=== PATIENT | male | born 1955 | race Two or more races ===

== ENCOUNTER 2025-05-25 12:30 | Inpatient (IN) | payer OTHER ==
[~2025-05-25] VITALS: Ht 188 cm; Wt 134.5 kg
[2025-05-25 12:53] VITALS: PULSE 132; RESP 27; O2SAT 95
[2025-05-25] MEDS: SODIUM CHLORIDE 0.9% 1,000 ML IV ONE ×2 (13:06→13:38)
[2025-05-25] MEDS: CEFEPIME 1GM/50ML 50 ML IV ONE (13:07)
[2025-05-25] MEDS: ACETAMINOPHEN 500 MG TAB or CAP PO ONE (13:09)
--- NOTE | 2025-05-25 13:18 | ED.PDOC ---
General HPI Comments 70 y/o M, with PMHx of HTN and DM is BIBA for CC of dysuria. EMS reports, patient is coming from home where he c/o dysuria, hematuria, and urinary hesitancy sudden onset, last night (05/24/25). Patient reports, "sharp/burning" pain with urination and to have been febrile with a temperature of 102F. Upon arrival to the ED, patient is tachycardiac with a HR of 132bpm and febrile with a temperature of 101.4F. Patient denies back pain, abdominal pain, nausea, vomiting, penile discharge, or scrotal swelling. At this time patient was moved to ED bed 06, care is ongoing at this time. Chief Complaint: Urinary Time Seen by MD: 13:05 Reviewed notes: Nurses Notes, Plating Technician Notes, Medications, Allergies Allergies: Coded Allergies: NO KNOWN ALLERGIES (Unverified , 05/25/25) Information Source: Patient, Emergency Med Personnel Mode of Arrival: Ambulatory Severity: Moderate Timing: Days Duration: Since onset Prehospital treatment: None Onset: Spontaneous Symptoms: Dysuria, Hematuria, Inability to void History of: None Location: None Penile discharge: None Modifying factors: None associated signs and symptoms: Dysuria, Hematuria, Inability to Void Past Medical History PAST MEDICAL HISTORY: DM, HTN Surgical History: Denies all surgeries Family History Family History: Unknown Social History Smoker: Non-Smoker Alcohol: Denies ETOH Use Drugs: Denies Drug Use Lives In: Home Constitutional: reports: fever; denies: chills, diaphoresis, fatigue, malaise, sweats, weakness, others EENTM: denies: blurred vision, double vision, ear bleeding, ear discharge, ear drainage, ear pain, ear ringing, eye pain, eye redness, hearing loss, mouth pain, mouth swelling, nasal discharge, nose bleeding, nose congestion, nose pain, photophobia, tearing, throat pain, throat swelling, voice changes, others Respiratory: denies: cough, hemoptysis, orthopnea, SOB at rest, shortness of breath, SOB with excertion, stridor, wheezing, others Cardiovascular: denies: chest pain, dizzy spells, diaphoresis, Dyspnea on exertion, edema, irregular heart beat, left arm pain, lightheadedness, palpitations, PND, syncope, others Gastrointestinal: denies: abdomen distended, abdominal pain, blood streaked bowels, constipated, diarrhea, dysphagia, difficulty swallowing, hematemesis, melena, nausea, poor appetite, poor fluid intake, rectal bleeding, rectal pain, vomiting, others Genitourinary: reports: dysuria, hematuria; denies: burning, flank pain, frequency, incontinence, penile discharge, penile sore, pain, testicle pain, testicle swelling, urgency, others Neurological: denies: dizziness, fainting, headache, left sided numbness, left sided weakness, numbness, paresthesia, pre-existing deficit, right sided numbness, right sided weakness, seizure, speech problems, tingling, tremors, weakness, others Musculoskeletal: denies: back pain, gout, joint pain, joint swelling, muscle p ain, muscle stiffness, neck pain, others Integumetry: denies: bruises, change in color, change in hair/nails, dryness, laceration, lesions, lumps, rash, wounds, others Allergic/Immunocompromised: denies: Difficulty Healing, Frequent Infections, Hives, Itching, others Hematologic/Lymphatic: denies: anemia, blood clots, easy bleeding, easy bruising, swollen glands, others Endocrine: denies: excessive hunger, excessive sweating, excessive thirst, excessive urination, flushing, intolerance to cold, intolerance to heat, unexplained weight gain, unexplained weight loss, others Psychiatric: denies: anxiety, bipolar disorder, depression, hopeless, panic disorder, schizophrenia, sleepless, suicidal, others All Other Systems: Reviewed and Negative Physical Exam General Appearance: Moderate Distress HEENT: Normal ENT Inspection, Pharynx Normal, TMs Normal Neck: Full Range of Motion, Non-Tender, Normal, Normal Inspection Respiratory: Chest Non-Tender, Lungs Clear, No Accessory Muscle Use, No Respiratory Distress, Normal Breath Sounds Cardiovascular: No Edema, No JVD, No Murmur, No Gallop, Normal Peripheral Pulses, Regular Rate/Rhythm Breast Exam: Deferred Gastrointestinal: No Organomegaly, Non Tender, No Pulsatile Mass, Normal Bowel Sounds, Soft Genitalia: Deferred Pelvic: Deferred Rectal: Deferred Extremities: No calf tenderness, Normal capillary refill, Normal inspection, Normal range of motion, Non-tender, No pedal edema Musculoskeletal : Apperance: Normal Neurologic: Alert, packer denture II-XII nml as Tested, No Motor Deficits, Normal Affect, Normal Mood, No Sensory Deficits Cerebellar Function: Normal Reflexes: NOT DONE Skin: Dry, Normal Color, Warm Peripheral Pulses: 3+ Radial (R), 3+ Radial (L) Lymphatic: No Adenopathy Was a procedure done? Was a procedure done?: No Differential Diagnosis Kidney stone (Female): Musculoskeletal pain, Urinary obstruction, Urolithiasis Kidney stone (Male): Pyelonephritis, Urinary obstruction, Urolithiasis, Urinary tract infection X-Ray, Labs, Meds, VS Vital Signs Date Time Temp Pulse Resp B/P (MAP) Pulse Ox O2 Delivery O2 Flow Rate FiO2 05/25/25 15:00 98 24 130/75 (93) 95 05/25/25 14:40 99.6 100 26 144/81 (102) 100 99.6 05/25/25 14:09 101.2 05/25/25 13:50 100.5 100.5 05/25/25 13:09 101.4 05/25/25 12:53 101.4 132 27 135/82 (99) 95 101.4 05/25/25 12:53 132 27 95 Room Air* 0 21 05/25/25 12:40 122 05/25/25 12:33 101.3 106 20 195/97 94 101.3 Lab Test 05/25/25 15:00 05/25/25 13:06 05/25/25 12:50 Range/Units Lactic Acid Level 2.1 *H 3.2 *H 0.4-2.0 mmol/L White Blood Count 18.8 H 4.4-10.8 10^3/uL Red Blood Count 4.96 4.5-5.90 10^6/uL Hemoglobin 15.1 13.5-17.5 g/dL Hematocrit 44.4 41.0-53.0 % Mean Corpuscular Volume 89.5 80.0-100.0 fL Mean Corpuscular Hemoglobin 30.3 28.0-32.0 pg Mean Corpuscular Hemoglobin Concent 33.9 32.0-36.0 g/dL Red Cell Distribution Width 13.5 11.8-14.3 % Platelet Count 263 140-450 10^3/uL Mean Platelet Volume 6.3 L 6.9-10.8 fL Neutrophils (%) (Auto) 85.7 H 37.0-80.0 % Lymphocytes (%) (Auto) 3.5 L 10.0-50.0 % Monocytes (%) (Auto) 10.5 0.0-12.0 % Eosinophils (%) (Auto) 0.0 0.0-7.0 % Basophils (%) (Auto) 0.3 0.0-2.0 % Neutrophils # (Auto) 16.1 H 1.6-8.6 10 ^3/uL Lymphocytes # (Auto) 0.7 0.4-5.4 10 ^3/uL Monocytes # (Auto) 2.0 H 0-1.3 10 ^3/uL Eosinophils # (Auto) 0 0-0.8 10 ^3/uL Basophils # (Auto) 0.1 0-0.2 10 ^3/uL Nucleated Red Blood Cells 0.0 % Sodium Level 135 L 136-145 mmol/L Potassium Level 3.9 3.5-5.1 mmol/L Chloride Level 100 98-107 mmol/L Carbon Dioxide Level 22 20-31 mmol/L Anion Gap 13 5-15 Blood Urea Nitrogen 8 L 9-23 mg/dL Creatinine 1.00 0.700-1.30 mg/dL Glomerular Filtration Rate Calc 80 >90 mL/min BUN/Creatinine Ratio 8.0 L 10.0-20.0 Serum Glucose 223 H 74-106 mg/dL Calcium Level 9.4 8.7-10.4 mg/dL Total Bilirubin 1.4 H 0.2-1.0 mg/dL Aspartate Amino Transferase (AST) 17 13-40 U/L Alanine Aminotransferase (ALT) 21 7-40 U/L Alkaline Phosphatase 96 46-116 U/L Total Protein 7.9 5.7-8.2 g/dL Albumin 4.8 3.2-4.8 g/dL Urine Color Light-brown Yellow Urine Clarity Turbid H Clear Urine pH 7.0 5.0-9.0 Urine Specific [place] 1.018 1.001-1.035 Urine Protein 1+ H Negative Urine Ketones Trace Negative Urine Blood 3+ H Negative /uL Urine Nitrite Negative Negative Urine Bilirubin Negative Negative Urine Urobilinogen Normal Negative mg/dL Urine Leukocyte Esterase 3+ Negative /uL Urine RBC 2894 0 - 3 /hpf Urine Microscopic WBC 103 H 0-3 /HPF Urine Squamous Epithelial Cells None seen <5 /hpf Urine Bacteria None seen None Seen /hpf Urine Mucus Few None Seen Urine Glucose 2+ H Normal mg/dL Current Medications Medications (Trade) Dose Ordered Sig/Feng Route Start Time Stop Time Status Last Admin Sodium Chloride 1,000 ml @ 1,000 mls/hr Q1H ONCE IV 05/25/25 13:00 05/25/25 13:59 DC 05/25/25 13:06 Vancomycin HCl 250 ml @ 250 mls/hr ONCE ONCE IV 05/25/25 14:00 05/25/25 14:59 DC 05/25/25 14:17 Cefepime HCl 50 ml @ 50 mls/hr ONCE ONCE IV 05/25/25 13:00 05/25/25 13:59 DC 05/25/25 13:07 Acetaminophen (Tylenol Tablet Or Capsule) 1,000 mg ONCE ONCE PO 05/25/25 13:00 05/25/25 13:01 DC 05/25/25 13:09 Sodium Chloride 1,000 ml @ 1,000 mls/hr Q1H ONCE IV 05/25/25 13:45 05/25/25 14:44 DC 05/25/25 13:38 Sodium Chloride 1,408 ml @ 1,000 mls/hr Q1H25M ONCE IV 05/25/25 15:45 05/25/25 17:09 05/25/25 15:41 [place] [address] Ph: [phone] DIAGNOSTIC IMAGING Diagnostic Imaging Report : [id number] Signed PATIENT: DONA SANTANA ACCT: [id number] UNIT: [id number] : 1955 LOC: ER ROOM / BED: / AGE / SEX: 70 / M ADM STATUS: REG ER SERVICE 1335 ORDERING PHYSICIAN: JUDY HANLEY MD PROCEDURE(s): CXR1 - CHEST XRAY 1 VIEW REASON: SOB ORDER NUMBER(s): [id number], ACCESSION NUMBER(s): [id number] CHEST RADIOGRAPH Indication: SOB Technique: Single frontal view of the chest was obtained Comparison: None FINDINGS: Lines and Tubes: None Lungs: No focal consolidation. Pleura: No effusion. No pneumothorax. Cardiomediastinal contours: Unremarkable Bones: No acute osseous abnormality. IMPRESSION: 1. No acute cardiopulmonary disease. ATED BY: RODRI GRECO Jr., DO DICTATED DATE/TIME: 05/25/251401 SIGNED BY: RODRI GRECO Jr., SIGNED DATE/TIME: 05/25/251401 CC: Patient alert. Came in because urinary pain. Has fever. Vitals stable. Possible sepsis. Establish intravenous access. Was given fluids. Was given antibiotics. Explained to the patient. Continue to monitor. [place] approved inpatient admission [id number]. Time of 1ST Reevaluation: 13:35 Reevaluation 1ST: Unchanged Patient Education/Counseling: Diagnosis, Treatment Family Education/Counseling: No Family Present SEPSIS Sepsis Screen Date sepsis recognized/suspect: May 25, 2025 Time Sepsis recognized/suspect: 1233 Recent Procedure: Yes On Antibiotic Therapy: No Respiratory Rate >20: No Heart Rate >90: Yes Temp<36 C (96.8 F) or >38.3 C: Yes SBP <90 or MAP <65 mmHG: No New Acute Mental Status Change: No Is the patient on CPAP, BIPAP,: No Physician Orders Electrocardigram (05/25/25 12:55) Blood Culture (05/25/25 12:54) Urine Bacterial Culture (05/25/25 12:54) Chest Xray 1 View (05/25/25 13:35) Sodium Chloride 0.9% (05/25/25 15:45) Vital Signs Date Time Temp Pulse Resp B/P (MAP) Pulse Ox O2 Delivery O2 Flow Rate FiO2 05/25/25 15:00 98 24 130/75 (93) 95 05/25/25 14:40 99.6 100 26 144/81 (102) 100 99.6 05/25/25 14:09 101.2 05/25/25 13:50 100.5 100.5 05/25/25 13:09 101.4 05/25/25 12:53 101.4 132 27 135/82 (99) 95 101.4 05/25/25 12:53 132 27 95 Room Air* 0 21 05/25/25 12:40 122 05/25/25 12:33 101.3 106 20 195/97 94 101.3 Laboratory Tests Test 05/25/25 13:06 05/25/25 15:00 Lactic Acid Level 3.2 mmol/L (0.4-2.0) *H 2.1 mmol/L (0.4-2.0) *H White Blood Count 18.8 10^3/uL (4.4-10.8) H Medications Medications Dose Ordered Sig/Feng Route Start Time Stop Time Status Last Admin Dose Admin Acetaminophen 1,000 mg ONCE ONCE PO 05/25/25 13:00 05/25/25 13:01 DC 05/25/25 13:09 Cefepime HCl 50 ml @ 50 mls/hr ONCE ONCE IV 05/25/25 13:00 05/25/25 13:59 DC 05/25/25 13:07 Sodium Chloride 1,000 ml @ 1,000 mls/hr Q1H ONCE IV 05/25/25 13:00 05/25/25 13:59 DC 05/25/25 13:06 Sodium Chloride 1,000 ml @ 1,000 mls/hr Q1H ONCE IV 05/25/25 13:45 05/25/25 14:44 DC 05/25/25 13:38 Sodium Chloride 1,408 ml @ 1,000 mls/hr Q1H25M ONCE IV 05/25/25 15:45 05/25/25 17:09 05/25/25 15:41 Vancomycin HCl 250 ml @ 250 mls/hr ONCE ONCE IV 05/25/25 14:00 05/25/25 14:59 DC 05/25/25 14:17 Departure 1 Departure Time of Disposition: 15:21 Impression: Primary Impression: Sepsis due to urinary tract infection Disposition: ADMITTED INPATIENT Admit to: Med Surg Condition: Guarded Critical Care Note Critical Care Time?: Yes (90 min-critical care time only) Stability Stability form required: No Heart Score Heart Score: Heart Score Response (Comments) Value History N/A 0 EKG N/A 0 Age N/A 0 Risk Factors N/A 0 Troponin N/A 0 Total 0 I personally scribed for JUDY HANLEY MD ([email or web address]) on 05/25/25 at 13:18. Electronically submitted by Barbi Carolina ([email or web address]). I personally scribed for JUDY HANLEY MD ([email or web address]) on 05/25/25 at 13:58. Electronically submitted by Barbi Carolina ([email or web address]). I personally scribed for JUDY HANLEY MD ([email or web address]) on 05/25/25 at 15:11. Electronically submitted by Barbi Carolina ([email or web address]). I personally scribed for JUDY HANLEY MD ([email or web address]) on 05/25/25 at 16:19. Electronically submitted by Barbi Carolina ([email or web address]). JUDY HANLEY MD May 25, 2025 13:18
[2025-05-25 13:20] LABS: Hematocrit 44.4 % (41.0-53.0); Hemoglobin 15.1 g/dL (13.5-17.5); Mean Corpuscular Hemoglobin 30.3 pg (28.0-32.0); Mean Corpuscular Volume 89.5 fL (80.0-100.0); Nucleated Red Blood Cells % 0.0 %
[2025-05-25 13:35] LABS: Urine Protein, UAD 1+ (Negative)
[2025-05-25 13:36] LABS: Alanine Aminotransferase 21 U/L (7-40); Alkaline Phosphatase 96 U/L (46-116); Anion Gap 13 (5-15); BUN/Creatinine Ratio 8.0 (10.0-20.0); Calcium 9.4 mg/dL (8.7-10.4); Carbon Dioxide 22 mmol/L (20-31); Chloride 100 mmol/L (98-107); Potassium 3.9 mmol/L (3.5-5.1); Total Protein 7.9 g/dL (5.7-8.2)
[2025-05-25 13:38] LABS: Albumin 4.8 g/dL (3.2-4.8); Bilirubin, Total 1.4 mg/dL (0.2-1.0); Blood Urea Nitrogen 8 mg/dL (9-23); Glucose 223 mg/dL (74-106); Sodium 135 mmol/L (136-145)
[2025-05-25 13:39] LABS: Lactic Acid w/Reflex 3.2 mmol/L (0.4-2.0)
--- NOTE | 2025-05-25 14:04 | DVH ---
CHEST RADIOGRAPH Indication: SOB Technique: Single frontal view of the chest was obtained Comparison: None FINDINGS: Lines and Tubes: None Lungs: No focal consolidation. Pleura: No effusion. No pneumothorax. Cardiomediastinal contours: Unremarkable Bones: No acute osseous abnormality. IMPRESSION: 1. No acute cardiopulmonary disease.
[2025-05-25] MEDS: VANCOMYCIN 1GM/250ML KIT 250 ML IV ONE (14:17)
[2025-05-25] MEDS: SODIUM CHLORIDE 0.9% IV ONE (15:41)
[2025-05-25] MEDS ORDERED: NITROGLYCERIN 0.4 MG SL TAB SL PRN (18:30)
[2025-05-25] MEDS ORDERED: MORPHINE SULFATE INJ 2 MG/ml SYRG IV PRN (18:30)
[2025-05-25] MEDS ORDERED: HYDROcodone-ACET 5/325MG TAB PO PRN (18:30)
[2025-05-25] MEDS ORDERED: ONDANSETRON HCL 4 MG/2 ML VIAL IV PRN (18:30)
--- NOTE | 2025-05-25 18:42 | DVHHPRES ---
History of Present Illness Resident Creating Document: JOSE BURRIS RESIDENT Reason for Visit: Fever, gross hematuria, dysuria, urinary hesitancy, History of Present Illness 70-year-old male with a history of hypertension, diabetes mellitus, hypothyroidism, hyperlipidemia, and BPH, presenting with acute onset of fever (Tmax 102.7F), dysuria, hematuria with clot passage, urinary hesitancy, and urinary retention since 05/24/25. The patient reports feeling acutely unwell, with chills, fever, and gross hematuria beginning at 3 AM. He notes passage of possible blood clots per urethra. He denies flank pain, abdominal pain, nausea, vomiting, penile discharge, or scrotal swelling. He underwent left renal mass/stone removal with laser lithotripsy and ureteral stent placement by urology at [facility] on 05/14/25. He initially had post- procedural hematuria for 5 days, which cleared, but now presents with recurrence associated with fever and urinary retention. He has a planned follow-up video visit on 05/29/25 and stent removal in ~34 weeks. On arrival to ED: Vitals: T 101.4F, HR 132, RR 26, BP 142/81, SpO? 100% RA. Labs: WBC 18.8 (neutrophils 85.7%), lactate 3.2 ? 1.2 post-IV fluids, glucose 223, Cr 1.0, Na 135, BUN 8, TBili 1.4. UA: WBC 103, RBC 2894, 3+ leukocyte esterase, positive protein and blood. CXR: Negative. ED management: IV fluids (2L NS), vancomycin, cefepime, Tylenol. Summary: This patient meets sepsis criteria (fever, tachycardia, tachypnea, leukocytosis, initial lactate elevation) with suspected urinary source (complicated UTI/pyelonephritis vs urosepsis vs post-procedural infection/prostatitis) in the setting of a recent urologic procedure and indwelling ureteral stent. He is hemodynamically stable post-resuscitation but requires inpatient admission for IV antibiotics, further diagnostic evaluation, and urology involvement. Past Medical History Hypertension Diabetes mellitus, insulin-dependent Hypothyroidism (on levothyroxine) Benign prostatic hyperplasia Hyperlipidemia Past Surgical History 05/14/25: Left renal laser lithotripsy with ureteral stent placement and biopsy (benign) Colonoscopy (2023): removal of polyps, no malignancy No cardiac or other major surgeries reported Family History: None Family History Non-contributory per patient Past Social History Lives with No alcohol, tobacco, or illicit drug use reported Independent in ADLs Review of Systems Review of Systems General: Fever, chills, malaise. HEENT: No sore throat, headache, or vision changes. Cardiac: No chest pain, palpitations, orthopnea. Respiratory: No cough, SOB. GI: No nausea, vomiting, abdominal pain, melena, hematochezia. : Dysuria, hematuria, urinary hesitancy, retention. No penile discharge or scrotal swelling. MSK: No back pain, flank pain. Neuro: No focal weakness, confusion, dizziness. Skin: No rash, wounds. Allergies: Coded Allergies: NO KNOWN ALLERGIES (Unverified , 05/25/25) Medications Current Medications Medications Dose Ordered Sig/Feng Route Start Time Stop Time Status Last Admin Dose Admin Acetaminophen/ Hydrocodone Bitart 1 tab Q4HP PRN PO 05/25/25 18:30 UNV Ondansetron HCl 4 mg Q4HP PRN IV 05/25/25 18:30 UNV Enoxaparin Sodium 40 mg DAILY SC 05/26/25 10:00 UNV Acetaminophen 650 mg Q6HP PRN PO 05/25/25 18:30 UNV Nitroglycerin 0.4 mg Q5MINP PRN SL 05/25/25 18:30 UNV Morphine Sulfate 2 mg Q30M PRN IV 05/25/25 18:30 UNV Exam Vital Signs Vital Signs Date Time Temp Pulse Resp B/P (MAP) Pulse Ox O2 Delivery O2 Flow Rate FiO2 05/25/25 18:00 99.2 91 20 143/82 (102) 96 99.2 05/25/25 12:53 Room Air* 0 21 Exam General: Elderly male, alert, oriented, mildly ill-appearing Vitals: As above HEENT: MMM, no icterus CVS: Tachycardic, regular, no murmurs Respiratory: Clear to auscultation bilaterally, no distress Abdomen: Soft, non-tender, non-distended, no CVA tenderness : External genitalia normal, no penile discharge, no scrotal swelling; bladder not palpable Rectal: Deferred (will consider for prostatitis if symptoms evolve) Neuro: AO3, no deficits Extremities: No edema, pulses intact Skin: Warm, dry, no rash Labs/Xrays Labs Test 05/25/25 15:00 05/25/25 13:06 05/25/25 12:50 Range/Units Lactic Acid Level 2.1 *H 0.4-2.0 mmol/L White Blood Count 18.8 H 4.4-10.8 10^3/uL Red Blood Count 4.96 4.5-5.90 10^6/uL Hemoglobin 15.1 13.5-17.5 g/dL Hematocrit 44.4 41.0-53.0 % Mean Corpuscular Volume 89.5 80.0-100.0 fL Mean Corpuscular Hemoglobin 30.3 28.0-32.0 pg Mean Corpuscular Hemoglobin Concent 33.9 32.0-36.0 g/dL Red Cell Distribution Width 13.5 11.8-14.3 % Platelet Count 263 140-450 10^3/uL Mean Platelet Volume 6.3 L 6.9-10.8 fL Neutrophils (%) (Auto) 85.7 H 37.0-80.0 % Lymphocytes (%) (Auto) 3.5 L 10.0-50.0 % Monocytes (%) (Auto) 10.5 0.0-12.0 % Eosinophils (%) (Auto) 0.0 0.0-7.0 % Basophils (%) (Auto) 0.3 0.0-2.0 % Neutrophils # (Auto) 16.1 H 1.6-8.6 10 ^3/uL Lymphocytes # (Auto) 0.7 0.4-5.4 10 ^3/uL Monocytes # (Auto) 2.0 H 0-1.3 10 ^3/uL Eosinophils # (Auto) 0 0-0.8 10 ^3/uL Basophils # (Auto) 0.1 0-0.2 10 ^3/uL Nucleated Red Blood Cells 0.0 % Sodium Level 135 L 136-145 mmol/L Potassium Level 3.9 3.5-5.1 mmol/L Chloride Level 100 98-107 mmol/L Carbon Dioxide Level 22 20-31 mmol/L Anion Gap 13 5-15 Blood Urea Nitrogen 8 L 9-23 mg/dL Creatinine 1.00 0.700-1.30 mg/dL Glomerular Filtration Rate Calc 80 >90 mL/min BUN/Creatinine Ratio 8.0 L 10.0-20.0 Serum Glucose 223 H 74-106 mg/dL Calcium Level 9.4 8.7-10.4 mg/dL Total Bilirubin 1.4 H 0.2-1.0 mg/dL Aspartate Amino Transferase (AST) 17 13-40 U/L Alanine Aminotransferase (ALT) 21 7-40 U/L Alkaline Phosphatase 96 46-116 U/L Total Protein 7.9 5.7-8.2 g/dL Albumin 4.8 3.2-4.8 g/dL Urine Color Light-brown Yellow Urine Clarity Turbid H Clear Urine pH 7.0 5.0-9.0 Urine Specific [place] 1.018 1.001-1.035 Urine Protein 1+ H Negative Urine Ketones Trace Negative Urine Blood 3+ H Negative /uL Urine Nitrite Negative Negative Urine Bilirubin Negative Negative Urine Urobilinogen Normal Negative mg/dL Urine Leukocyte Esterase 3+ Negative /uL Urine RBC 2894 0 - 3 /hpf Urine Microscopic WBC 103 H 0-3 /HPF Urine Squamous Epithelial Cells None seen <5 /hpf Urine Bacteria None seen None Seen /hpf Urine Mucus Few None Seen Urine Glucose 2+ H Normal mg/dL SEPSIS Sepsis Screen Date sepsis recognized/suspect: May 25, 2025 Time Sepsis recognized/suspect: 1253 Recent Procedure: No On Antibiotic Therapy: No Respiratory Rate >20: Yes Heart Rate >90: Yes Temp<36 C (96.8 F) or >38.3 C: Yes SBP <90 or MAP <65 mmHG: No New Acute Mental Status Change: No Is the patient on CPAP, BIPAP,: No Physician Orders Electrocardigram (05/25/25 12:55) Blood Culture (05/25/25 12:54) Urine Bacterial Culture (05/25/25 12:54) Chest Xray 1 View (05/25/25 13:35) Admit (05/25/25 18:27) Code Status (05/25/25 18:27) Oxygen Per Hour (05/25/25 18:27) Hydrocodone-Acet 5/325mg Tab ([place] 5/32 (05/25/25 18:30) Ondansetron Hcl (Zofran) (05/25/25 18:30) Enoxaparin Sodium (Lovenox) (05/26/25 10:00) Complete Blood Count (05/26/25 04:00) Comprehensive Metabolic Panel (05/26/25 04:00) Cardiac Diet-2gna,Lofat,Lochol (05/25/25 Dinner) Echo 2d Mode Cardiac Dop (05/25/25 18:27) Condition: Unstable (05/25/25 18:27) Acetaminophen Tablet (Tylenol Tablet) (05/25/25 18:30) Nitroglycerin Sublingual (Ntrostat Subli (05/25/25 18:30) Morphine Sulfate Injection (05/25/25 18:30) Oxygen By Nasal Cannula (05/25/25 18:27) Stat Ekg For Chest Pain (05/25/25 18:) Notify Md Of Changes From Base (05/25/25 18:) Hospitality Services Manager For 24 Hours (05/25/25 18:) Emergency Dysrhythmia Protocol (05/25/25 18:27) Rhythm Strips Once Every Shift (05/25/25 18:27) Strict I & O QSHIFT (05/25/25 18:27) Sodium Chloride 0.9% (05/25/25 18:30) Blood Culture (05/25/25 18:35) Urine Bacterial Culture (05/25/25 18:35) Lactic Acid W/ Reflex Order (05/25/25 18:35) Complete Blood Count (05/25/25 18:35) Magnesium (05/25/25 18:35) Phosphorus (05/25/25 18:35) Abdomen Contrast Only (05/25/25 18:35) Glucose Blood (Accu-Chek Comfort Curve T (05/25/25 20:00) Insulin R (Human) (Insulin R) (05/25/25 20:00) Dextrose 50% Syringe (05/25/25 18:45) Vital Signs Date Time Temp Pulse Resp B/P (MAP) Pulse Ox O2 Delivery O2 Flow Rate FiO2 05/25/25 18:00 99.2 91 20 143/82 (102) 96 99.2 05/25/25 17:00 88 19 138/80 (99) 95 05/25/25 16:00 99.2 91 20 131/75 (93) 95 99.2 05/25/25 15:00 99.3 98 24 130/75 (93) 95 99.3 05/25/25 14:40 99.6 100 26 144/81 (102) 100 99.6 05/25/25 14:09 101.2 05/25/25 13:50 100.5 100.5 05/25/25 13:09 101.4 05/25/25 12:53 101.4 132 27 135/82 (99) 95 101.4 05/25/25 12:53 132 27 95 Room Air* 0 21 05/25/25 12:40 122 05/25/25 12:33 101.3 106 20 195/97 94 101.3 Laboratory Tests Test 05/25/25 13:06 05/25/25 15:00 Lactic Acid Level 3.2 mmol/L (0.4-2.0) *H 2.1 mmol/L (0.4-2.0) *H White Blood Count 18.8 10^3/uL (4.4-10.8) H Medications Medications Dose Ordered Sig/Feng Route Start Time Stop Time Status Last Admin Dose Admin Acetaminophen 1,000 mg ONCE ONCE PO 05/25/25 13:00 05/25/25 13:01 DC 05/25/25 13:09 1,000 MG Cefepime HCl 50 ml @ 50 mls/hr ONCE ONCE IV 05/25/25 13:00 05/25/25 13:59 DC 05/25/25 13:07 50 MLS/HR Sodium Chloride 1,000 ml @ 1,000 mls/hr Q1H ONCE IV 05/25/25 13:00 05/25/25 13:59 DC 05/25/25 13:06 1,000 MLS/HR Sodium Chloride 1,000 ml @ 1,000 mls/hr Q1H ONCE IV 05/25/25 13:45 05/25/25 14:44 DC 05/25/25 13:38 1,000 MLS/HR Sodium Chloride 1,408 ml @ 1,000 mls/hr Q1H25M ONCE IV 05/25/25 15:45 05/25/25 17:09 DC 05/25/25 15:41 1,000 MLS/HR Vancomycin HCl 250 ml @ 250 mls/hr ONCE ONCE IV 05/25/25 14:00 05/25/25 14:59 DC 05/25/25 14:17 250 MLS/HR Assessment/Plan Assessment/Plan Assessment 1. Sepsis due to urinary source (complicated UTI vs prostatitis vs infected stent) POA Meets SIRS + sepsis criteria (fever, tachycardia, tachypnea, leukocytosis, elevated lactate). Rule-in: infection source + positive UA + recent procedure. Rule-out: pneumonia, intra-abdominal source (negative CXR, no abdominal tenderness). 2. Gross hematuria with clot passage likely post-procedural, worsened by infection. POA 3. Recent laser lithotripsy with ureteral stent possible nidus for infection, requires urology consult. POA 4. Diabetes mellitus, insulin-dependent glucose 223 on arrival, requires inpatient glycemic control. POA 5. Hypertension stable on meds, continue. POA 6. Hypothyroidism on levothyroxine, continue. POA 7. Hyperlipidemia continue atorvastatin. POA 8. Benign prostatic hyperplasia (BPH) on tamsulosin. POA 9. Obesity Plan (Guideline-Based & Systematic) 1. Sepsis / Complicated UTI (primary problem) Admit to Telemetry/Step-Down Unit (hemodynamically stable but septic on presentation). Continue empiric IV cefepime + vancomycin ? tailor per cultures. Monitor lactate trend, repeat in 6 hrs. Blood cultures 2, urine culture pending. Maintain MAP >65, IV fluids PRN guided by exam/urine output. Urology consult for evaluation of infected stent vs clot retention. Imaging: CT abdomen/pelvis with contrast (if Cr stable) to rule out obstruction, abscess, emphysematous infection. 2. Gross Hematuria / Post-procedural bleeding Maintain hydration to prevent clot retention. Urology to evaluate for irrigation or stent complications. Monitor Hb/Hct daily. Hold NSAIDs. 3. Diabetes Mellitus Hold oral agents. Initiate basal-bolus insulin with correctional scale. Monitor glucose Q6H. 4. Hypertension Continue home meds except hold hydralazine/losartan temporarily if hypotension develops with sepsis. 5. Hypothyroidism Continue levothyroxine. 6. Hyperlipidemia Continue atorvastatin. 7. BPH Continue tamsulosin. 8. GINO prevention Avoid nephrotoxic meds (NSAIDs, contrast unless essential). Strict I/O, daily BMP. 9. Prophylaxis DVT prophylaxis: Lovenox GI prophylaxis: PPI Infection prevention: Mcmanus catheter only if retention/monitoring needed ? minimize use. Case discussed in detail with the attending physician, including the clinical presentation, diagnostic workup, and comprehensive management plan. The patient was present for the discussion and demonstrated understanding of his condition and the proposed plan. Patient verbally consented to hospital admission and agreed to the outlined evaluation and treatment strategies, including imaging, labs, medication initiation, specialist consultations, and supportive care. Plan discussed with: Patient, Spouse My Orders Orders - JOSE BURRIS RESIDENT Procedure Category Date Status Time Admit ADMIT 05/25/25 Transmitted 18:27 Code Status CODE 05/25/25 Transmitted 18:27 Oxygen Per Hour RT 05/25/25 Transmitted 18:27 Hydrocodone-Acet PHA 05/25/25 Logged 5/325mg Tab ([place] 18:30 Ondansetron Hcl PHA 05/25/25 Logged (Zofran) 18:30 Enoxaparin Sodium PHA 05/26/25 Logged (Lovenox) 10:00 Complete Blood Count LAB 05/26/25 Verified 04:00 Comprehensive LAB 05/26/25 Verified Metabolic Panel 04:00 Cardiac DIET 05/25/25 Transmitted Diet-2gna,Lofat,Lochol Dinner Echo 2d Mode Cardiac US 05/25/25 Logged DOP 18:27 Condition: Unstable JEAN-PAUL 05/25/25 In Process 18:27 Acetaminophen Tablet PHA 05/25/25 Logged (Tylenol Tablet) 18:30 Nitroglycerin PHA 05/25/25 Logged Sublingual (Ntrostat 18:30 Morphine Sulfate PHA 05/25/25 Logged Injection 18:30 Oxygen By Nasal RT 05/25/25 Transmitted Cannula 18:27 Stat Ekg For Chest [facility] 05/25/25 In Process Pain 18:27 Notify Md Of Changes [facility] 05/25/25 In Process From Base 18:27 Hospitality Services Manager For [facility] 05/25/25 In Process 24 Hours 18:27 Emergency Dysrhythmia JEAN-PAUL 05/25/25 In Process Protocol 18:27 Rhythm Strips Once [facility] 05/25/25 In Process Every Shift 18:27 Strict I & O JEAN-PAUL 05/25/25 In Process 18:27 Sodium Chloride 0.9% PHA 05/25/25 Logged 18:30 Blood Culture BARBARA 05/25/25 Logged 18:35 Urine Bacterial BARBARA 05/25/25 Logged Culture 18:35 Lactic Acid W/ Reflex LAB 05/25/25 Logged Order 18:35 Complete Blood Count LAB 05/25/25 Logged 18:35 Magnesium LAB 05/25/25 Logged 18:35 Phosphorus LAB 05/25/25 Logged 18:[address] 05/25/25 Logged 18:35 Glucose Blood PHA 05/25/25 Logged (Accu-Chek Comfort 20:00 Insulin R (Human) PHA 05/25/25 Logged (Insulin R) 20:00 Dextrose 50% Syringe PHA 05/25/25 Transmitted 18:45 Date of Service: May 25, 2025 Billing Provider: NAINA GONSALEZ MD Common Visit Codes: [id number] INP/OBS CARE (HIGH) JOSE BURRIS RESIDENT May 25, 2025 18:42
[2025-05-25] MEDS: SODIUM CHLORIDE 0.9% 500 ML IV ONE (18:44)
[2025-05-25] MEDS ORDERED: DEXTROSE (50%) 50ML SYRG IV PRN (18:45)
[2025-05-25 19:12] LABS: Hematocrit 41.5 % (41.0-53.0); Hemoglobin 14.0 g/dL (13.5-17.5); Mean Corpuscular Hemoglobin 30.5 pg (28.0-32.0); Mean Corpuscular Volume 90.5 fL (80.0-100.0); Nucleated Red Blood Cells % 0.0 %
[2025-05-25 19:18] LABS: Magnesium 1.7 mg/dL (1.6-2.6)
[2025-05-25] MEDS: ACCU-CHEK COMFORT CURVE STRIP VI SCH (20:02)
[2025-05-25] MEDS: InsuLIN REG 1unit/0.01ml Soln (100units/ml) SC SCH (20:06)
[2025-05-25] MEDS: CEFEPIME 2GM/50ML NS 50 ML IV ONE (20:12)
[2025-05-25 20:57] VITALS: BP 159/81; PULSE 104; RESP 16; TEMP 100.7; O2SAT 94
[2025-05-25 20:59] VITALS: BP 159/81; PULSE 104; RESP 16; TEMP 100.6; O2SAT 95
[2025-05-25] MEDS ORDERED: VANCOMYCIN PER PHARMACY 0 MG IV SCH (21:15)
[2025-05-25] MEDS: ATORVASTATIN 20 MG TAB PO SCH (21:44)
[2025-05-25] MEDS: ACETAMINOPHEN 325 MG TAB PO PRN (21:44)
[2025-05-25] MEDS: VANCOMYCIN 1.5GM/250ML 250 ML IV SCH (21:46)
[2025-05-25] MEDS ORDERED: IOHEXOL 300 MG/ML 100ML BOTTLE IJ ONE (22:50)
--- NOTE | 2025-05-25 23:23 | DVH ---
Exam: CT CT AB PEL WITH IV CON ONLY History: Evalute For renal pathology Comparison Study: None TECHNIQUE: Multidetector CT of the abdomen was performed from lung bases to pubic symphysis. Imaging was performed without IV contrast. Axial, coronal and sagittal multiplanar reformats were obtained fr om the axial data set by the technologist. Radiation Dose Information: CT Dose: CTDI volume is 26.85 mGy. Dose-length product is 1597.33 mGy*cm Omnipaque 300: 100 cc FINDINGS: Lung Bases: No acute or significant lung base finding. Normal heart size. No pleural or pericardial effusion. Liver: The liver is normal in size. No focal lesions. Gallbladder and Biliary Tree: Unremarkable Spleen: Unremarkable Pancreas: The pancreas is grossly normal in appearance. Adrenal Glands: Unremarkable Kidneys: 7-8 mm left renal calculus with mild hydronephrosis. Left ureteral stent in place with the p roximal portion in the renal pelvis distal portion in the bladder. 2-3 cm hypodense cortical lesion upper pole left kidney. Can not entirely exclude cortical mass. Tissue density centrally 77 Hounsfiel d units somewhat elevated to be a simple cyst. Series 2 images 31- 35; series 601, images 79- 84). Bladder: Grossly unremarkable for degree of distention. Bowel: The stomach is grossly normal in appearance. Small bowel and colon are normal in caliber and d istribution. The appendix is not visualized; however, no secondary findings of acute appendicitis id entified. Ascites: Absent Lymphadenopathy: No mesenteric, retroperitoneal or periportal lymphadenopathy. Abdominal Wall and Mesentery: Unremarkable. Vasculature: The visualized abdominal aorta is normal in size and caliber. Evaluation of abdominal a nd pelvic vessels is limited due to lack of intravenous contrast. Pelvic Organs: Prostate measures 6.2 x 6.7 cm Musculoskeletal: No aggressive focal bony lesions, acute fractures or dislocation. Soft tissues: Unremarkable IMPRESSION: 1. Mild left hydronephrosis with 7-8 mm left renal calculus lower pole left kidney. 2. Left ureteral stent in place with proximal pigtail in the renal pelvis distal pigtail bladder. 3. Poorly defined hypodense mass in the cortex upper pole left kidney measuring 2-3 cm. Tissue densit y 77 Hounsfield units. Can not exclude renal mass. 4. Mild prostatic hypertrophy. Measures 6.8 x 6.2 x 6.7 cm Radiation optimization: All CT scans at this facility use at least one of these dose optimization te chniques: automated exposure control mA and/or kV adjustment per patient size (includes targeted exa ms where dose is matched to clinical indication) or iterative reconstruction.
[2025-05-26] VITALS (8 sets, daily range): BP systolic 140–148; BP diastolic 60–97; PULSE 84–104; RESP 16–19; TEMP 97.5–99.2; O2SAT 93–96
[2025-05-26] MEDS: LEVOTHYROXINE SODIUM 50 MCG TAB PO SCH (05:05)
--- NOTE | 2025-05-26 05:09 | DVH ---
CHEST RADIOGRAPH Indication: Evaluate for pneumonia Technique: Single frontal view of the chest was obtained COMPARISON: XY CHEST XRAY 1 VIEW on DOS: 05/25/25 FINDINGS: Lines and Tubes: None Pleura: No effusion.No pneumothorax. Lungs: Pulmonary vascular congestion is slightly improved. Bones: Unremarkable IMPRESSION: Improved aeration in the right lower lobe.
[2025-05-26 06:25] LABS: Hematocrit 41.3 % (41.0-53.0); Hemoglobin 14.1 g/dL (13.5-17.5); Mean Corpuscular Hemoglobin 30.4 pg (28.0-32.0); Mean Corpuscular Volume 88.7 fL (80.0-100.0); Nucleated Red Blood Cells % 0.0 %
[2025-05-26 06:32] LABS: Alanine Aminotransferase 18 U/L (7-40); Albumin 4.2 g/dL (3.2-4.8); Alkaline Phosphatase 78 U/L (46-116); Anion Gap 9 (5-15); BUN/Creatinine Ratio 10.5 (10.0-20.0); Blood Urea Nitrogen 10 mg/dL (9-23); Carbon Dioxide 26 mmol/L (20-31); Chloride 102 mmol/L (98-107); Potassium 3.8 mmol/L (3.5-5.1); Sodium 137 mmol/L (136-145); Total Protein 7.0 g/dL (5.7-8.2)
[2025-05-26 06:33] LABS: Bilirubin, Total 1.0 mg/dL (0.2-1.0)
[2025-05-26 06:34] LABS: Calcium 8.6 mg/dL (8.7-10.4); Glucose 209 mg/dL (74-106)
[2025-05-26] MEDS: CEFEPIME 2GM/50ML NS 50 ML IV SCH (08:53)
[2025-05-26] MEDS: LOSARTAN POTASSIUM 50 MG TAB PO SCH (08:56)
[2025-05-26] MEDS: ENOXAPARIN SOD 40 MG/0.4 ML SYRINGE SC SCH (08:57)
[2025-05-26] MEDS ORDERED: CEFEPIME 2GM/50ML NS 50 ML IV SCH (10:00)
[2025-05-26] MEDS: SODIUM CHLORIDE 0.9% 1,000 ML IV SCH (11:00)
--- NOTE | 2025-05-26 13:15 | DVHPNRES ---
Progress Note Date Seen: May 26, 2025 Resident Creating Document: GERARD PHILLIPS RESIDENT Medical Necessity Reason Pt with a Central, PICC or Fol: No Subjective Review of Systems 70-year-old male with a history of hypertension, diabetes mellitus, hypothyroidism, hyperlipidemia, and BPH, presenting with acute onset of fever (Tmax 102.7F), dysuria, hematuria with clot passage, urinary hesitancy, and urinary retention since 05/24/25.The patient reports feeling acutely unwell, with chills, fever, and gross hematuria beginning at 3 AM. He notes passage of possible blood clots per urethra. He denies flank pain, abdominal pain, nausea, vomiting, penile discharge, or scrotal swelling. He underwent left renal mass/stone removal with laser lithotripsy and ureteral stent placement by urology at [facility] on 05/14/25. He initially had post-procedural hematuria for 5 days, which cleared, but now presents with recurrence associated with fever and urinary retention. He has a planned follow-up video visit on 05/29/25 and stent removal in ~34 weeks. At the ER patient had fever of 101.4, tachycardia 132, respiratory rate 22. Lab reviewed WBC 18.8 (neutrophils 85.7%), lactate 3.2 ? 1.2 post-IV fluids, glucose 223, Cr 1.0, Na 135, BUN 8, TBili 1.4. UA: WBC 103, RBC 2894, 3+ leukocyte esterase, positive protein and blood. CXR: Negative. CT abdomen and pelvis revealed Mild left hydronephrosis with 7-8 mm left renal calculus lower pole left kidney. Left ureteral stent in place with proximal pigtail in the renal pelvis distal pigtail bladder. Poorly defined hypodense mass in the cortex upper pole left kidney measuring 2-3 cm. Tissue density 77 Hounsfield units. Can not exclude renal mass. Mild prostatic hypertrophy. Measures 6.8 x 6.2 x 6.7 cm Past Medical History Hypertension, Diabetes mellitus, insulin-dependent, Hypothyroidism (on levothyroxine), Benign prostatic hyperplasia, Hyperlipidemia Past Surgical History-05/14/25: Left renal laser lithotripsy with ureteral stent placement and biopsy (benign), Colonoscopy (2023): removal of polyps, no malignancy. No cardiac or other major surgeries reported Family [id number] per patient Past Social History-Lives with , No alcohol, tobacco, or illicit drug use reported.Independent in ADLs Patient was seen today at bedside, labs and chart reviewed. Patient had low- grade fever last night. Leukocytosis trending down, patient reported feeling better today. Continue so far grew Gram-positive cocci in chain, Ordered MRI of the abdomen with contrast for further evaluation and care of suspected left renal mass. Plan is to obtain left renal biopsy. Patient on IV antibiotic cefepime and vancomycin, tolerating well. Objective vital signs Vital Sign Date Time Temp Pulse Resp B/P (MAP) Pulse Ox O2 Delivery O2 Flow Rate FiO2 05/26/25 08:56 148/97 05/26/25 08:33 97.8 95 19 95 97.8 05/26/25 08:05 Room Air* 0 21 Total Intake and Output 05/25/25 05/25/25 05/26/25 15:00 23:00 07:00 Intake Total 2050 ml 2208 ml 850 ml Output Total 150 ml 300 ml 510 ml Balance 1900 ml 1908 ml 340 ml medications Current Medications Medications Dose Ordered Sig/Feng Route Start Time Stop Time Status Last Admin Dose Admin Acetaminophen/ Hydrocodone Bitart 1 tab Q4HP PRN PO 05/25/25 18:30 Ondansetron HCl 4 mg Q4HP PRN IV 05/25/25 18:30 Enoxaparin Sodium 40 mg DAILY SC 05/26/25 10:00 05/26/25 08:57 40 MG Acetaminophen 650 mg Q6HP PRN PO 05/25/25 18:30 05/25/25 21:44 650 MG Nitroglycerin 0.4 mg Q5MINP PRN SL 05/25/25 18:30 Morphine Sulfate 2 mg Q30M PRN IV 05/25/25 18:30 Diagnostic Test (Pha) 1 strip IQ4HR 05/25/25 20:00 05/26/25 08:56 1 STRIP Insulin Human Regular IQ4HR SC 05/25/25 20:00 05/26/25 09:09 9 UNITS Dextrose 50 ml UD PRN IV 05/25/25 18:45 Cefepime HCl 50 ml @ 50 mls/hr ONCE IV 05/26/25 10:00 UNV Levothyroxine Sodium 150 mcg QAM@0600 PO 05/26/25 06:00 05/26/25 05:05 150 MCG Atorvastatin Calcium 20 mg HS PO 05/25/25 22:00 05/25/25 21:44 20 MG Tamsulosin HCl 0.4 mg QPM PO 05/26/25 18:00 Amlodipine Besylate 5 mg DAILY PO 05/26/25 10:00 05/26/25 08:56 5 MG Losartan Potassium 100 mg DAILY PO 05/26/25 10:00 05/26/25 08:56 100 MG Vancomycin HCl 0 ml @ 0 mls/hr UD IV 05/25/25 21:15 Cefepime HCl 50 ml @ 12.5 mls/hr Q8H IV 05/26/25 08:00 05/26/25 08:53 12.5 MLS/HR Vancomycin HCl 250 ml @ 166.667 mls/hr Q12H IV 05/25/25 22:00 05/26/25 09:49 166.667 MLS/HR Sodium Chloride 1,000 ml @ 100 mls/hr Q10H IV 05/26/25 08:30 05/26/25 11:00 100 MLS/HR Examination General examination- awake, alert, oriented HEENT- PEERLA, no acute nasal discharge Cardiovascular- S1-S2 audible, rate and rhythm regular, no murmur Respiratory- CTAB, no wheeze or rhonchi Gastrointestinal-nontender, bowel sound+. Nondistended Musculoskeletal-no acute joint swelling or tenderness or redness Lower extremity- no leg edema Neurological- cranial nerves intact, no acute dysarthria or dysphagia Psychiatry- denies depression or SI or HI Skin- no acute rash or purpura laboratory and microbiology Laboratory Tests 05/26/25 05:48 Test 05/26/25 05:48 Range/Units Serum Glucose 209 H 74-106 mg/dL Microbiology Date/Time Source Procedure Growth Status 05/25/25 13:06 Blood Blood Culture - Preliminary Resulted 05/25/25 12:50 Voided Urine Urine Culture - Preliminary Resulted Problem List/Assessment/Plan Problem List/Assessment/Plan Assessment and plan # Sepsis due to urinary source (complicated UTI vs prostatitis vs infected stent) POA #Gross hematuria with clot passage likely post-procedural, worsened by infection. POA #Recent laser lithotripsy with ureteral stent possible nidus for infection, requires urology consult. POA # left upper pole kidney mass -CT abdomen and pelvis revealed Mild left hydronephrosis with 7-8 mm left renal calculus lower pole left kidney. Left ureteral stent in place with proximal pigtail in the renal pelvis distal pigtail bladder. Poorly defined hypodense mass in the cortex upper pole left kidney measuring 2-3 cm.. Mild prostatic hypertrophy. Measures 6.8 x 6.2 x 6.7 cm -urinalysis significant for UTI -continue IV fluid as prescribed -blood culture preliminary Gram-positive cocci in chain -urine culture preliminary mixed tamiko -continue IV antibiotic cefepime and vancomycin -ordered MRI of the abdomen with contrast for further evaluation of suspected left renal mass #Diabetes mellitus type 2 -continue insulin sliding scale as prescribed -monitor blood sugar #Hypertension -continue amlodipine 5 mg p.o. daily -continue losartan 100 mg p.o. daily #Hypothyroidism -continue levothyroxine 150 mcg q.a.m. - #Hyperlipidemia --continue atorvastatin 20 mg p.o. q.h.s. #Benign prostatic hyperplasia (BPH -continue Flomax 0.4 mg p.o. q.d. #Obesity -patient was counseled about the effect of obesity on health, weight reduction, physical activity as tolerated, low-fat Patient with sepsis due to UTI. No acute complaint. Reported feeling better. Patient on IV antibiotic cefepime and vancomycin and IV fluid, tolerating well. Patient's vitals were stable. Patient is stable to be transferred to [place]. Goals of care, Code status ; discussed with >15 minutes PUD prophylaxis: Pantoprazole DVT prophylaxis: SCD Plan discussed with Dr. Gonsalez , nursing staff, Total time spent on patient evaluation, chart review, assessment and plan, discussion discussion >35 minutes Plan discussed with: Patient, Other (RN) My Orders My Orders Orders - GERARD PHILLIPS RESIDENT Procedure Category Date Status Time Sodium Chloride 0.9% PHA 05/26/25 In Process 08:30 Mri Abdomen W And Wo MRI 05/27/25 Logged 10:46 Sepsis reassessment post fluid Is the fluid challenge complet: Yes Date of Reassessment: May 25, 2025 Time of Reassessment: 1650 Blood Culture Time: 1304 Time Antibiotics Given: 1307 Systolic BP: 130 Diastolic BP: 80 Blood Pressure Mean: 97 Respiration: 22 Respiratory Effort: Non-Labored Respiratory Pattern: Regular Oxygen Saturation: 95 Pulse Rate: 86 Pulse Location: Radial Pulse Strength: Normal Pulse Assessment Method: Palpation Pulse Rhythm: Regular Capillary Refill: < 3 seconds Heart Sounds: S1 & S2 Breath sounds: Clear Skin Moisture: Dry Skin Tugor: WNL Skin Color: WNL Date of Service: May 26, 2025 Billing Provider: NAINA GONSALEZ MD Common Visit Codes: [id number] INP/OBS CARE(HIGH) GERARD PHILLIPS RESIDENT May 26, 2025 13:15 NAINA GONSALEZ MD May 26, 2025 22:11
[2025-05-26] MEDS: TAMSULOSIN HYDROCHLORIDE 0.4 MG CAP PO SCH (19:18)
[2025-05-27 01:00] VITALS: BP 144/86; PULSE 79; RESP 18; TEMP 97.9; O2SAT 95
[2025-05-27 05:00] VITALS: BP 135/96; PULSE 79; RESP 19; TEMP 97.8; O2SAT 95
[2025-05-27] MEDS: PANTOPRAZOLE 40 MG TAB PO SCH (05:06)
[2025-05-27 06:14] LABS: Hematocrit 40.0 % (41.0-53.0); Hemoglobin 14.1 g/dL (13.5-17.5); Mean Corpuscular Hemoglobin 31.3 pg (28.0-32.0); Mean Corpuscular Volume 88.6 fL (80.0-100.0)
[2025-05-27 06:34] LABS: Alanine Aminotransferase 26 U/L (7-40); Albumin 4.3 g/dL (3.2-4.8); Alkaline Phosphatase 78 U/L (46-116); Anion Gap 10 (5-15); BUN/Creatinine Ratio 11.1 (10.0-20.0); Blood Urea Nitrogen 11 mg/dL (9-23); Calcium 8.8 mg/dL (8.7-10.4); Carbon Dioxide 26 mmol/L (20-31); Chloride 103 mmol/L (98-107); Magnesium 2.0 mg/dL (1.6-2.6); Potassium 3.6 mmol/L (3.5-5.1); Sodium 139 mmol/L (136-145); Total Protein 7.1 g/dL (5.7-8.2)
[2025-05-27 06:35] LABS: Bilirubin, Total 0.7 mg/dL (0.2-1.0)
[2025-05-27 06:40] LABS: Glucose 204 mg/dL (74-106)
[2025-05-27 06:59] LABS: Total Cells Counted 100.0 (100)
[2025-05-27] MEDS: INSULIN LANTUS (GLARGINE) 1 /0.01ml (100units/ml) SC SCH (07:00)
[2025-05-27] MEDS ORDERED: GADOTERATE MEG 10 MMOL/20ml INJ (0.5MMOL/ml) IV ONE (07:40)
[2025-05-27 08:00] VITALS: PULSE 78; PULSE 80; RESP 18
[2025-05-27 09:00] VITALS: BP 135/89; PULSE 82; RESP 20; TEMP 98.6; O2SAT 95
[2025-05-27] MEDS: VANCOMYCIN 1.5GM/250ML 250 ML IV SCH (12:30)
--- NOTE | 2025-05-27 12:32 | DVH ---
PROCEDURE: MRI MRI ABDOMEN W AND WO Indication: Poorly defined hypodense mass in the cortex upper pole left kidne COMPARISON: CT abdomen from 05/25/2025 TECHNIQUE: Multiplanar multisequence images of the abdomen were obtained with and without contrast. FINDINGS: The right kidney demonstrates no hydronephrosis. The left kidney demonstrates mild left hydroureteronephrosis. Left ureteral stent which is better ch aracterized on the prior CT. Left perinephric edema / stranding. Left renal upper pole subtle lesion measuring 2.7 cm with increased DWI signal . The enhancement characteristics are similar to the cuong cent renal parenchyma. There is enhancement of the left urothelium. Left renal nonenhancing lesion m easuring 8 mm in the upper pole. Left renal cysts measuring up to 7 mm. Adrenal glands, spleen and pancreas unremarkable. No evidence for cholelithiasis. Stomach is partially distended. The imaged small bowel loops are normal in caliber. Colonic divertic ular disease. Normal appendix. IMPRESSION: There is increased DWI signal within the previous described left renal upper pole lesion measuring ap proximately 2.7 cm. This could represent a region of pyonephrosis/ segmental pyelonephritis although a renal mass can not be entirely ruled out. Recommend follow-up MRI abdomen with and without contras t in 6 weeks to 3 months to ensure resolution and exclude any type of abnormal enhancing lesion/mass. Mild left hydroureteronephrosis. Enhancement of the left urothelium, left perinephric edema/strandin g which are suggestive of urinary tract infection/ pyelonephritis. Other findings as described
[2025-05-27] MEDS ORDERED: LEVO500T91 PO (12:50)
[2025-05-27] MEDS ORDERED: DOXY100C79 PO (12:50)
[2025-05-27 13:14] VITALS: BP 129/82; PULSE 83; RESP 20; TEMP 98.4; O2SAT 96
--- NOTE | 2025-05-27 13:58 | DVHDSRES ---
Discharge Summary Date of Admission Resident Creating Document: GERARD PHILLIPS RESIDENT May 25, 2025 at 18:27 Date of Discharge: May 27, 2025 Admitting Diagnosis Sepsis due to UTI Labs/Diagnostic Data: Laboratory Results Test 05/27/25 12:27 05/27/25 05:49 05/26/25 20:58 05/26/25 05:48 POC Glucose 267 mg/dl (70-106) White Blood Count 7.4 10^3/uL (4.4-10.8) Red Blood Count 4.52 10^6/uL (4.5-5.90) Hemoglobin 14.1 g/dL (13.5-17.5) Hematocrit 40.0 % (41.0-53.0) Mean Corpuscular Volume 88.6 fL (80.0-100.0) Mean Corpuscular Hemoglobin 31.3 pg (28.0-32.0) Mean Corpuscular Hemoglobin Concent 35.3 g/dL (32.0-36.0) Red Cell Distribution Width 13.2 % (11.8-14.3) Platelet Count 218 10^3/uL (140-450) Mean Platelet Volume 6.3 fL (6.9-10.8) Neutrophils (%) (Auto) % (37.0-80.0) Lymphocytes (%) (Auto) % (10.0-50.0) Monocytes (%) (Auto) % (0.0-12.0) Basophils (%) (Auto) % (0.0-2.0) Neutrophils # (Auto) 10 ^3/uL (1.6-8.6) Lymphocytes # (Auto) 10 ^3/uL (0.4-5.4) Monocytes # (Auto) 10 ^3/uL (0-1.3) Differential Total Cells Counted 100.0 (100) Neutrophils % (Manual) 74 (37.0-80.0) Band Neutrophils % (Manual) 1 Lymphocytes % (Manual) 9 (10.0-50.0) Monocytes % (Manual) 14 (0-12) Eosinophils % (Manual) 1 (0-7) Basophils % (Manual) 0 (0.0-2.0) Metamyelocytes % (manual) 0 Myelocytes % (Manual) 0 Promyelocytes % (Manual) 0 Blast Cells % (Manual) 0 Reactive Lymphocytes 1 Platelet Estimate Adequate Sodium Level 139 mmol/L (136-145) Potassium Level 3.6 mmol/L (3.5-5.1) Chloride Level 103 mmol/L (98-107) Carbon Dioxide Level 26 mmol/L (20-31) Anion Gap 10 (5-15) Blood Urea Nitrogen 11 mg/dL (9-23) Creatinine 0.99 mg/dL (0.700-1.30) Glomerular Filtration Rate Calc 81 mL/min (>90) BUN/Creatinine Ratio 11.1 (10.0-20.0) Serum Glucose 204 mg/dL (74-106) Calcium Level 8.8 mg/dL (8.7-10.4) Magnesium Level 2.0 mg/dL (1.6-2.6) Total Bilirubin 0.7 mg/dL (0.2-1.0) Aspartate Amino Transferase (AST) 22 U/L (13-40) Alanine Aminotransferase (ALT) 26 U/L (7-40) Alkaline Phosphatase 78 U/L (46-116) Total Protein 7.1 g/dL (5.7-8.2) Albumin 4.3 g/dL (3.2-4.8) Vancomycin Level Trough 8.4 ug/mL (5-10) Eosinophils (%) (Auto) 0.1 % (0.0-7.0) Eosinophils # (Auto) 0 10 ^3/uL (0-0.8) Basophils # (Auto) 0 10 ^3/uL (0-0.2) Nucleated Red Blood Cells 0.0 % Lactic Acid Level 1.4 mmol/L (0.4-2.0) Test 05/25/25 18:47 05/25/25 12:50 Hemoglobin A1c 7.1 % A1C (<5.7) Phosphorus Level 2.5 mg/dL (2.4-5.1) Urine Color Light-brown (Yellow) Urine Clarity Turbid (Clear) Urine pH 7.0 (5.0-9.0) Urine Specific [place] 1.018 (1.001-1.035) Urine Protein 1+ (Negative) Urine Ketones Trace (Negative) Urine Blood 3+ /uL (Negative) Urine Nitrite Negative (Negative) Urine Bilirubin Negative (Negative) Urine Urobilinogen Normal mg/dL (Negative) Urine Leukocyte Esterase 3+ /uL (Negative) Urine RBC 2894 /hpf (0 - 3) Urine Microscopic WBC 103 /HPF (0-3) Urine Squamous Epithelial Cells None seen /hpf (<5) Urine Bacteria None seen /hpf (None Seen) Urine Mucus Few (None Seen) Urine Glucose 2+ mg/dL (Normal) Other Laboratory Tests 05/27/25 05:49 Brief Hx & Hospital Course: 70-year-old male with a history of hypertension, diabetes mellitus, hypothyroidism, hyperlipidemia, and BPH, presenting with acute onset of fever (Tmax 102.7F), dysuria, hematuria with clot passage, urinary hesitancy, and urinary retention since 05/24/25.The patient reports feeling acutely unwell, with chills, fever, and gross hematuria beginning at 3 AM. He notes passage of possible blood clots per urethra. He denies flank pain, abdominal pain, nausea, vomiting, penile discharge, or scrotal swelling. He underwent left renal mass/stone removal with laser lithotripsy and ureteral stent placement by urology at [facility] on 05/14/25. He initially had post-procedural hematuria for 5 days, which cleared, but now presents with recurrence associated with fever and urinary retention. He has a planned follow-up video visit on 05/29/25 and stent removal in ~34 weeks. At the ER patient had fever of 101.4, tachycardia 132, respiratory rate 22. Lab reviewed WBC 18.8 (neutrophils 85.7%), lactate 3.2 ? 1.2 post-IV fluids, glucose 223, Cr 1.0, Na 135, BUN 8, TBili 1.4. UA: WBC 103, RBC 2894, 3+ leukocyte esterase, positive protein and blood. CXR: Negative. CT abdomen and pelvis revealed Mild left hydronephrosis with 7-8 mm left renal calculus lower pole left kidney. Left ureteral stent in place with proximal pigtail in the renal pelvis distal pigtail bladder. Poorly defined hypodense mass in the cortex upper pole left kidney measuring 2-3 cm. Tissue density 77 Hounsfield units. Can not exclude renal mass. Mild prostatic hypertrophy. Measures 6.8 x 6.2 x 6.7 cm. Culture pending urinary >100,000 CFU/mL Mixed Tatyana. Patient is being treated with cefepime and vancomycin. Blood culture preliminary Gram Positive Cocci in chains. Patient left AMA. Patient was warned about the consequence of treatment noncompliance, patient departed understanding. Patient was advised to follow up with urologist as up and also to follow up with the discharge Clinic on Saturday05/31/25. Patient's cognition was unknown on discharge. Operations or Procedures [place] [id number] Ph: [phone] DIAGNOSTIC IMAGING Diagnostic Imaging Report : [id number] Signed PATIENT: DONA SANTANA ACCT: [id number] UNIT: [id number] : 1955 LOC: ER ROOM / BED: / AGE / SEX: 70 / M ADM STATUS: REG ER SERVICE 1335 ORDERING PHYSICIAN: JUDY HANLEY MD PROCEDURE(s): CXR1 - CHEST XRAY 1 VIEW REASON: SOB ORDER NUMBER(s): [id number], ACCESSION NUMBER(s): [id number] CHEST RADIOGRAPH Indication: SOB Technique: Single frontal view of the chest was obtained Comparison: None FINDINGS: Lines and Tubes: None Lungs: No focal consolidation. Pleura: No effusion. No pneumothorax. Cardiomediastinal contours: Unremarkable Bones: No acute osseous abnormality. IMPRESSION: 1. No acute cardiopulmonary disease. ATED BY: RODRI GRECO Jr., DO DICTATED DATE/TIME: 05/25/251401 SIGNED BY: RODRI GRECO Jr., SIGNED DATE/TIME: 05/25/25 140 CC: [place] [id number] Ph: [phone] DIAGNOSTIC IMAGING Diagnostic Imaging Report : [id number] Signed PATIENT: DONA SANTANA ACCT: [id number] UNIT: [id number] : 1955 LOC: [facility] ROOM / BED: 0278T / B AGE / SEX: 70 / M ADM STATUS: ADM IN SERVICE 1046 ORDERING PHYSICIAN: GERARD PHILLIPS PROCEDURE(s): MRABWWO - MRI ABDOMEN W AND WO REASON: ORDER NUMBER(s): [id number], ACCESSION NUMBER(s): [id number] PROCEDURE: MRI MRI ABDOMEN W AND WO Indication: Poorly defined hypodense mass in the cortex upper pole left kidne COMPARISON: CT abdomen from 05/25/2025 TECHNIQUE: Multiplanar multisequence images of the abdomen were obtained with and without contrast. FINDINGS: The right kidney demonstrates no hydronephrosis. The left kidney demonstrates mild left hydroureteronephrosis. Left ureteral stent which is better characterized on the prior CT. Left perinephric edema / stranding. Left renal upper pole subtle lesion measuring 2.7 cm with increased DWI signal . The enhancement characteristics are similar to the adjacent renal parenchyma. There is enhancement of the left urothelium. Left renal nonenhancing lesion measuring 8 mm in the upper pole. Left renal cysts measuring up to 7 mm. Adrenal glands, spleen and pancreas unremarkable. No evidence for cholelithiasis. Stomach is partially distended. The imaged small bowel loops are normal in caliber. Colonic diverticular disease. Normal appendix. IMPRESSION: There is increased DWI signal within the previous described left renal upper pole lesion measuring approximately 2.7 cm. This could represent a region of pyonephrosis/ segmental pyelonephritis although a renal mass can not be entirely ruled out. Recommend follow-up MRI abdomen with and without contrast in 6 weeks to 3 months to ensure resolution and exclude any type of abnormal enhancing lesion/mass. Mild left hydroureteronephrosis. Enhancement of the left urothelium, left perinephric edema/stranding which are suggestive of urinary tract infection/ pyelonephritis. Other findings as described ATED BY: BEAN JAIME MD DICTATED DATE/TIME: 05/27/25 1233 SIGNED BY: BEAN JAIME MD SIGNED DATE/TIME: 05/27/25 1233 CC: [place] [id number] Ph: [phone] DIAGNOSTIC IMAGING Diagnostic Imaging Report : [id number] Signed PATIENT: DONA SANTANA ACCT: [id number] UNIT: [id number] : 1955 LOC: [facility] AGE / SEX: 70 / M ADM STATUS: ADM IN SERVICE 6235 ORDERING PHYSICIAN: JOSE BURRIS RESIDENT PROCEDURE(s): ABPLIV - CT AB PEL WITH IV CON ONLY REASON: Evalute For renal pathology ORDER NUMBER(s): [id number], ACCESSION NUMBER(s): [id number] Exam: CT CT AB PEL WITH IV CON ONLY History: Evalute For renal pathology Comparison Study: None TECHNIQUE: Multidetector CT of the abdomen was performed from lung bases to pubic symphysis. Imaging was performed without IV contrast. Axial, coronal and sagittal multiplanar reformats were obtained from the axial data set by the technologist. Radiation Dose Information: CT Dose: CTDI volume is 26.85 mGy. Dose-length product is 1597.33 mGy*cm Omnipaque 300: 100 cc FINDINGS: Lung Bases: No acute or significant lung base finding. Normal heart size. No pleural or pericardial effusion. Liver: The liver is normal in size. No focal lesions. Gallbladder and Biliary Tree: Unremarkable Spleen: Unremarkable Pancreas: The pancreas is grossly normal in appearance. Adrenal Glands: Unremarkable Kidneys: 7-8 mm left renal calculus with mild hydronephrosis. Left ureteral stent in place with the proximal portion in the renal pelvis distal portion in the bladder. 2-3 cm hypodense cortical lesion upper pole left kidney. Can not entirely exclude cortical mass. Tissue density centrally 77 Hounsfield units somewhat elevated to be a simple cyst. Series 2 images 31- 35; series 601, images 79- 84). Bladder: Grossly unremarkable for degree of distention. Bowel: The stomach is grossly normal in appearance. Small bowel and colon are normal in caliber and distribution. The appendix is not visualized; however, no secondary findings of acute appendicitis identified. Ascites: Absent Lymphadenopathy: No mesenteric, retroperitoneal or periportal lymphadenopathy. Abdominal Wall and Mesentery: Unremarkable. Vasculature: The visualized abdominal aorta is normal in size and caliber. Evaluation of abdominal and pelvic vessels is limited due to lack of intravenous contrast. Pelvic Organs: Prostate measures 6.2 x 6.7 cm Musculoskeletal: No aggressive focal bony lesions, acute fractures or dislocation. Soft tissues: Unremarkable IMPRESSION: 1. Mild left hydronephrosis with 7-8 mm left renal calculus lower pole left kidney. 2. Left ureteral stent in place with proximal pigtail in the renal pelvis distal pigtail bladder. 3. Poorly defined hypodense mass in the cortex upper pole left kidney measuring 2-3 cm. Tissue density 77 Hounsfield units. Can not exclude renal mass. 4. Mild prostatic hypertrophy. Measures 6.8 x 6.2 x 6.7 cm Radiation optimization: All CT scans at this facility use at least one of these dose optimization techniques: automated exposure control mA and/or kV adjustment per patient size (includes targeted exams where dose is matched to clinical indication) or iterative reconstruction. ATED BY: RODRI GRECO Jr., DO DICTATED DATE/TIME: 05/25/252320 SIGNED BY: RODRI GRECO Jr., SIGNED DATE/TIME: 05/25/252320 CC: [place] [id number] Ph: [phone] DIAGNOSTIC IMAGING Diagnostic Imaging Report : [id number] Signed PATIENT: DONA SANTANA ACCT: [id number] UNIT: [id number] : 1955 LOC: [facility] AGE / SEX: 70 / M ADM STATUS: ADM IN SERVICE 9 ORDERING PHYSICIAN: JOSE BURRIS RESIDENT PROCEDURE(s): CXR1 - CHEST XRAY 1 VIEW REASON: Evaluate for pneumonia ORDER NUMBER(s): [id number], ACCESSION NUMBER(s): [id number] CHEST RADIOGRAPH Indication: Evaluate for pneumonia Technique: Single frontal view of the chest was obtained COMPARISON: XY CHEST XRAY 1 VIEW on DOS: 05/25/25 FINDINGS: Lines and Tubes: None Pleura: No effusion.No pneumothorax. Lungs: Pulmonary vascular congestion is slightly improved. Bones: Unremarkable IMPRESSION: Improved aeration in the right lower lobe. ATED BY: KINGSLEY ESPARZA MD DICTATED DATE/TIME: 05/26/25506 SIGNED BY: KINGSLEY ESPARZA MD SIGNED DATE/TIME: 05/26/25506 CC: Condition at Discharge: Undetermined Final Diagnosis/Problems List # Sepsis due to urinary source (complicated UTI vs prostatitis vs infected stent) POA #Gross hematuria with clot passage likely post-procedural, worsened by infection. POA #Recent laser lithotripsy with ureteral stent possible nidus for infection, requires urology consult. POA # left upper pole kidney mass #Diabetes mellitus type 2 meclizine #Hypertension #Hypothyroidism #Hyperlipidemia #BPH Discharge Disposition: AMA Discharge Instruct/Medications Follow Up/Referral: Patient left AMA Patient was advised to follow-up at the discharge Clinic on 05/31/2025 Patient was advised to follow-up with his urologist CARLY up in 1 week Scheduled Doxycycline (Monohydrate) (Doxycycline), 100 MG PO BID Levofloxacin Hemihydrate (Levofloxacin), 1.5 TAB PO DAILY Discharge Statement: "Patient was advised to return to the ER or call 911 if any headaches, dizziness, shortness of breath, chest pain, abdominal pain, bleeding, fevers, or worsening of medical condition. Patient was counseled about treatment plan, medications, possible side effects, patientverbalized understanding. All questions were answered to the best of my ability. This discharge took greater then 30 minutes in planning, reviewing documentation, counseling the patient, and discussing with other team members." ASSESSMENT ASSESSMENT Assessment Date of Service: May 27, 2025 Billing Provider: NAINA GONSALEZ MD Common Visit Codes: 64135-TZP/OBS DISCH DAY >30min GERARD PHILLIPS RESIDENT May 27, 2025 13:58 NAINA GONSALEZ MD May 27, 2025 14:05
--- NOTE | 2025-05-28 10:55 | DVHSR ---
APPROVED REPORT EXAM: Two-dimensional and M-mode echocardiogram with Doppler and color Doppler. Blood Pressure: 143/94 mmHg INDICATION Evaluate for heart function RISK FACTORS Height: 6'2", Weight: 296 DIMENSIONS LVDd5.2 (3.8-5.7cm)LA (2D)3.7 (1.9-4.0cm)Aortic Root4.1 (2.0-3.7cm) LVDs3.7 (2.5-4.0cm)LA (MM) (1.9-4.0cm)Aortic Cusp Exc2.1 (1.5-2.0cm) EF (%) 55.0 (55-70%)Rt. Atrium (1.9-4.0cm)Asc. Aorta3.7 cm IVSd1.1 (0.7-1.1cm)RV (D) (1.8-2.4cm) PWd1.3 (0.7-1.1cm) Mitral Valve MitralMitral Stenosis E/A ratio0.02D MVAcm2 Aortic Valve Aortic ValveAortic Stenosis LVOT Diameter2.5 (1.8-2.4cm)Doppler AVAcm2 Pulmonic Valve V20.87m/s Other Information Quality : Technically LimitedRhythm : Technically limited study due to body habitus. Conclusion Sinus rhythm. Concentric LVH with aortic root enlargement. Valves are normal. EF of 60% with normal RV function. Unremarkable Doppler. Mild TR. No pericardial effusion masses or vegetations.
== END 2025-05-27 13:45 | disposition left against medical advice (07) | DRG 698 ==
LOC: EDBD 12:30 → ER 12:30 → OVERFLOW 18:27 → TELE-WESTW 18:35
PROVIDERS: ADMIT Student in an Organized Health Care Education/Training Program; ATTEND Student in an Organized Health Care Education/Training Program
DX: T83.593A Infection and inflammatory reaction due to other urinary stents, initial encounter (principal); A41.9 Sepsis, unspecified organism; N39.0 Urinary tract infection, site not specified; N99.820 Postprocedural hemorrhage of a genitourinary system organ or structure following a genitourinary system procedure; E11.9 Type 2 diabetes mellitus without complications; I10 Essential (primary) hypertension; E78.5 Hyperlipidemia, unspecified; N40.1 Benign prostatic hyperplasia with lower urinary tract symptoms; R33.8 Other retention of urine; E03.9 Hypothyroidism, unspecified; Z53.29 Procedure and treatment not carried out because of patient's decision for other reasons; N28.89 Other specified disorders of kidney and ureter; N41.9 Inflammatory disease of prostate, unspecified; Z79.899 Other long term (current) drug therapy; Z79.4 Long term (current) use of insulin; Y84.8 Other medical procedures as the cause of abnormal reaction of the patient, or of later complication, without mention of misadventure at the time of the procedure; Y92.89 Other specified places as the place of occurrence of the external cause
CPT/HCPCS: 36415; 71045; 74177; 74183; 80053; 80202; 81001; 82962; 83036; 83605; 83735; 84100; 85007; 85025; 85027; 87040; 87077; 87081; 87086; 87186; 93306; 99291; 99292; G0378; J0692; J1815